=== PATIENT | male | born 1975 ===

== ENCOUNTER 2021-03-08 19:53 | Emergency (ER) | payer OTHER ==
[2021-03-08] MEDS ORDERED: DELTASONE 20 MG PO ONE (20:13)
--- NOTE | 2021-03-08 20:18 | ERPHSYRPT ---
- History of Present Illness Time Seen by Provider: 03/08/21 19:57 Source: patient Exam Limitations: no limitations Physician History: 45 years old male presented in the ER with off-and-on right earache for the last 2 weeks mild to moderate without any significant aggravating or relieving factors with associated mild nasal congestion. Denies any discharge. Has been using [id number] medication with no significant relief. No fever or chills reported. Timing/Duration: intermittent, weeks (2) Severity: mild ENT Location: ear (R) Prearrival Treatment: over the counter meds Associated Symptoms: ear pain (R), nasal congestion/drainage, No ear pain (L), No cough, No fever, No chills, No change in hearing, No facial pain/swelling, No headache, No motion sickness, No nasal foreign body, No neck pain, No poor solids intake, No ringing of ears, No swollen glands, No sinus infection, No sore throat, No tooth pain, No difficulty swallowing, No voice change Allergies/Adverse Reactions: No Known Drug Allergies Allergy (Verified 03/08/21 20:14) Home Medications: Anxiety Medication 1 tab PO DAILY 03/08/21 [History] - Review of Systems Constitutional: No Symptoms Eyes: No Symptoms Ears, Nose, & Throat: Ear Pain, Nose Congestion Respiratory: No Symptoms Cardiac: No Symptoms Abdominal/Gastrointestinal: No Symptoms Genitourinary Symptoms: No Symptoms Musculoskeletal: No Symptoms Neurological: No Symptoms Psychological: No Symptoms Endocrine: No Symptoms Hematologic/Lymphatic: No Symptoms Immunological/Allergic: No Symptoms - Nursing Vital Signs Nursing Vital Signs: Initial Vital Signs Temperature 97.8 F 03/08/21 20:02 Pulse Rate 71 03/08/21 20:02 Respiratory Rate 16 03/08/21 20:02 Blood Pressure 131/88 03/08/21 20:02 O2 Sat by Pulse Oximetry 100 03/08/21 20:02 Pain Scale Pain Intensity 4 - Physical Exam General Appearance: no apparent distress, alert Eye Exam: bilateral eye: normal inspection, PERRL, EOMI Ear Exam: right ear: erythema, bilateral ear: auricle normal, canal normal Nasal Exam: sinus tenderness Throat Exam: normal, pharynx normal Neck Exam: normal inspection, non-tender, supple, full range of motion Cardiovascular/Respiratory Exam: chest non-tender, normal breath sounds, regular rate/rhythm Neurologic Exam: alert, oriented x 3, cooperative, 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, normal mood/affect Skin Exam: normal color SpO2 Interpretation: normal SpO2: 96 O2 Delivery: Room Air Ordered Tests: Medication Summary Discontinued Medications Generic Name Dose Route Start Last Admin Trade Name Ysabel PRN Reason Stop Dose Admin Prednisone 60 mg 03/08/21 20:13 03/08/21 20:20 Deltasone 20 Mg PO 03/08/21 20:14 60 mg STAT ONE Administration Prednisone Confirm 03/08/21 20:19 Deltasone 20 Mg Administered 03/08/21 20:20 Dose 60 mg .ROUTE .STK-MED ONE - Progress Progress: unchanged Progress Note: 03/08/21 20:16 has fluid behind the ear drum, believe he has eustachian tube dysfunction. Will do oral steroid for few days along with Flonase. Recommended Tylenol as needed. Counseled pt/family regarding: diagnosis, need for follow-up - Departure Departure Disposition: Home Clinical Impression: Eustachian tube dysfunction Qualifiers: Laterality: right Qualified Code(s): H69.81 - Other specified disorders of Eustachian tube, right ear Condition: Stable Critical Care Time: No Referrals: FARIDA LAUREANO MD [ACTIVE STAFF] - Follow Up with PCP/3 days Instructions: Eustachian Tube Problems (DC) Additional Instructions: Use Tylenol as needed for pain. Follow-up with primary care for reevaluation. Return to ER for worsening. Prescriptions: Prednisone 20 mg [Deltasone 20 mg] 60 mg PO DAILY 5 Days #15 tablet Fluticasone Propionate [Flonase NASAL] 16 gm NS DAILY #1
[2021-03-08] MEDS ORDERED: DELTASONE 20 MG ONE (20:19)
[2021-03-08 20:40] VITALS: BP 130/85; PULSE 68; O2SAT 96
== END 2021-03-08 20:34 | disposition home or self-care (01) ==
LOC: ED 19:53
DX: H69.81 Other specified disorders of Eustachian tube, right ear (principal)
CPT/HCPCS: 99283; A9270-GY